=== PATIENT | female | born 1970 | race Caucasian/White ===

== ENCOUNTER 2024-04-28 20:49 | Inpatient (IN) | payer OTHER, SELFPAY ==
[2024-04-28 15:03] VITALS: BP 155/106
[2024-04-28 15:24] LABS: % Basophils 0.2 % (0-2); % Immature Granulocytes 0.5 % (0-0.5); % Lymphocytes 10.9 % (20.5-51.1); % Monocytes 3.4 % (1.7-9.3); Absolute Basophils 0.1 10^3/uL (0-0.2); Absolute Immature Granulocytes 0.1 10^3/uL (0-0.05); Absolute Lymphocytes 2.3 10^3/uL (1.2-3.4); Absolute Monocytes 0.7 10^3/uL (0.1-0.6); Hematocrit 47.4 % (37.0-47.0); Mean Corp Hgb Conc. 35.9 g/dL (33.0-37.0); Mean Corpuscular Hgb 31.7 pg (27.0-31.0); Mean Corpuscular Volume 88.3 fL (81.0-99.0); Mean Platelet Volume 10.1 fL (7.4-10.4); Nucleated Red Blood Cells % 0 %; Platelet Count 356 10^3/uL (130-400); Red Blood Cell Count 5.37 10^6/uL (4.20-5.40); White Blood Cell Count 21.2 10^3/uL (4.8-10.8)
[2024-04-28 15:31] LABS: HCG, Serum Qualitative Screen Negative
[2024-04-28 15:35] LABS: ALT (SGPT) 14 U/L (0-35); AST (SGOT) 21 U/L (14-36); Albumin 5.2 g/dl (3.5-5.0); Alkaline Phosphatase 55 U/L (38-126); Blood Urea Nitrogen 17 mg/dl (7-17); Calcium 9.8 mg/dl (8.4-10.2); Carbon Dioxide 25 mmol/L (22-30); Chloride 101 mmol/L (98-107); Glucose 128 mg/dl (70-99); Sodium 141 mmol/L (135-145); Total Bilirubin 0.9 mg/dl (0.2-1.3); Total Protein 7.8 g/dl (6.3-8.2); eGFR > 60.00
--- NOTE | 2024-04-28 17:04 | ED.GENMED ---
History of Present Illness
General
Chief Complaint: Abdominal Pain
Time Seen by Provider: 04/28/24 16:36
History of Present Illness
History of Present Illness:
54-year-old female presents to the emergency department for evaluation of left lower quadrant pain and rectal bleeding. Pain began yesterday, felt she might be constipated so she used an enema which did result in a strong bowel movement however she
had persistent rectal bleeding for several hours after that. Rectal bleeding is now stopped however she is having moderate left lower quadrant pain. No history of similar pain. Denies any history of abdominal surgeries. No fever, chills, sweats,
nausea, or vomiting.
Past History
Past History
ED Past Medical History: GERD, HTN and Psychiatric
ED Past Surgical History: Appendectomy, Gynecological and Orthopedic
Social History
Tobacco: Smoker
Review of Systems
Review of Systems
Allergies reviewed?: Yes
All Other Systems: ROS reviewed and negative except as documented in HPI and ROS
Phy Exam
Physical Exam
Physical Exam:
GEN: Well appearing, NAD, WDWN
HEENT: Oral mucosa moist, no scleral icterus
Cardiac: Regular rate
Lung: No respiratory distress, no tachypnea
Abdomen: Soft, moderate left lower quadrant tenderness, no rigidity or peritoneal signs
MSK: No gross deformity or injuries
Skin: Good color, no pallor or jaundice, no rashes
Neuro: AO x3, moves all extremities freely
Psych: Calm, cooperative
Course
Orders/Labs/Results
Orders:
Orders
04/28/24 15:07
Test Result ONCE
04/28/24 15:12
Type+Screen Urgent
Complete Blood Count/With Diff Urgent
Comprehensive Metabolic Panel Urgent
HCG, Serum Qualitative Screen Urgent
04/28/24 17:03
CT Abd/Pel (IV only)-DH only Urgent
Comment:
Reason For Exam: LLQ pain
04/28/24 17:21
ABO2 Urgent
BBK Wristband Number:
Associate notified that ABO2 has been ordered: [id number]
Date: 04/28/24
Time: 15:38
Assistant Passenger Locomotive Engineer ID: [id number]
04/28/24 19:35
Lactic Acid Urgent
0.9% Sodium Chloride 1000 ml [Nss] 1,000 ml IV BOLUS
Ketorolac [Toradol] 15 mg IV NOW STA
Piperacillin/Tazo 3.375 Gram [Zosyn] 3.375 gram in 50 ml IV NOW
Abnormal Lab Results
04/28/24
15:12
WBC 21.2 H 10^3/uL
(4.8-10.8)
Hgb 17.0 H g/dL
(12.0-16.0)
Hct 47.4 H %
(37.0-47.0)
MCH 31.7 H pg
(27.0-31.0)
Abs Immat Gran (auto) 0.1 H 10^3/uL
(0-0.05)
Absolute Neuts (auto) 18.0 H 10^3/uL
(1.4-6.5)
Absolute Monos (auto) 0.7 H 10^3/uL
(0.1-0.6)
Neutrophils % 85.0 H %
(42.2-75.2)
Lymphocytes % 10.9 L %
(20.5-51.1)
Glucose 128 H mg/dl
(70-99)
Albumin 5.2 H g/dl
(3.5-5.0)
04/28/24 15:12
04/28/24 15:12
Vital Signs
Initial and Last Documented VS:
Initial Vital Signs
Temp Pulse Resp BP Pulse Ox
97.8 F 95 18 155/106 96
04/28/24 15:03 04/28/24 15:03 04/28/24 15:03 04/28/24 15:03 04/28/24 15:03
Last Documented Vital Signs
Temp Pulse Resp BP Pulse Ox
97.8 F 87 26 177/94 96
04/28/24 15:03 04/28/24 19:30 04/28/24 19:30 04/28/24 17:15 04/28/24 15:03
MDM/Problems Addressed
MDM/Problems Addressed:
Given the severe leukocytosis coupled with unclear cause of colitis will start empiric IV antibiotics and admit to the hospitalist service for further management
*Critical Care Note
Total Time (30-74mins, 75-104mins- exclusive of procedures): Not Applicable
ED Attending Note
-
Portions of this chart may have been created with voice recognition software.� Occasional wrong word or��sound alike� substitutions may have occurred due to the inherent limitations of voice recognition software.
Discharge Plan
Departure
Patient Disposition: Admit
Date of Disposition: 04/28/24
Time of Disposition: 19:36
Presentation/result/management discussed w/ accepting MD/DO: Hospitalist
Discharge Problem:
Colitis
Prescriptions:
No Action
buspirone 10 MG tablet
10 mg PO BID
gabapentin 100 MG capsule
100 mg PO TID
rosuvastatin 10 MG tablet
10 mg PO QPM
lamotrigine 150 mg tablet
150 mg PO DAILY
alprazolam 1 mg tablet
1 mg PO TIDPRN PRN (Reason: anxiety)
Patient Comments:
04/28/2024: last filled 04/15/24, 60 tabs for 30 days from [facility]
cyanocobalamin (vitamin B-12) 1,000 mcg Tablet
1,000 mcg PO .3X WEEKLY
zolpidem 10 mg tablet
10 mg PO HS
Patient Comments:
04/28/2024: last filled 04/17/24, 30 tabs for 30 days from [facility]
turmeric 400 mg Capsule
400 mg PO BID
Referrals:
Higinio Eisenberg MD [Family Provider] -
Interventions
Interventions:
*Risk Screen - Suicide Last Done: 04/28/24 15:03
*General Assessment Last Done: 04/28/24 15:03
*Neglect/Abuse Screening Last Done: 04/28/24 15:03
GO-Qqlelf-Lvyatddorw Assessment Last Done: 04/28/24 17:52
Discharge Date and Time
Print Language: ARMENIAN
[2024-04-28 17:15] VITALS: BP 177/94
--- NOTE | 2024-04-28 19:58 | HPS.HSE ---
Family Physician
-
Family Physician: Higinio Eisenberg
Chief Complaint
-
Left lower quadrant abdominal pain nausea vomiting and loose bloody stools
History of Present Illness
This 54-year-old female with past medical history of hypertension, hyperlipidemia, anxiety and depression who presents to the emergency department with 1 day history of abdominal pain followed by episodes of constipation and then ultimately bloody
diarrhea.
Patient reports she was in usual state of health up until 1 year ago when she developed crampy abdominal pain in the left lower quadrant. She reported that she felt she was constipated and to enema. Status post enema she had a regular bowel
movement. She took one dose of aspirin 81mg and ibuprofen 200mg for the pain/migraine headache. Otherwise denies NSAIDs. Later on in the day she developed bloody incontinent bowel movement. She reported bright red blood per rectum. She reported
episodes of nonbloody and nonbilious emesis overnight. She reports no fevers, she does report chills which she is baseline. She had the bloody bowel movements without tenderness most until arrival in the ED. In the ED she has not had any bowel
movement. She is intolerant of p.o. due to the abdominal pain.
Patient had colonoscopy 1 year ago which showed diverticulosis and hemorrhoids without any other significant abnormalities. She denied any recent surgeries. She has no prior intra-abdominal surgeries. She denies any recent travel. She does have
contact with individuals with cold and flulike symptoms at place of work.
In the ED she was afebrile, she was hypertensive to 170/90 nontachycardic. White count was elevated at 21,000 hemoglobin 17 and platelet count of 356. Chemistries were completely within normal limits. She had a CT of the abdomen pelvis which
showed left-sided colitis.
Medical History
Past Medical History
Past Medical History: Reports HTN, Hypercholesterolemia and Psychiatric (Anxiety/depression)
Past Surgical History: Reports Appendectomy and Other (parathyroidectomy)
Social History
Tobacco: Smoker (1ppd)
Alcohol: None
Drug: None
Personal:
Living: With Family
Employment: Employed
Family History
Family History: Not pertinent
Allergies / Home Medications
Allergies reflects when Allergies were last updated in [employer].
Home Medications with original date entered in [employer]
Allergy/Medication List:
Allergies
Allergy/AdvReac Type Severity Reaction Status Date / Time
No Known Allergies Allergy Verified 02/02/23 11:09
Home Medications
buspirone 10 mg tablet 10 mg PO BID 12/19/21
gabapentin 100 mg capsule 100 mg PO TID 12/19/21
rosuvastatin 10 mg tablet 10 mg PO QPM 12/19/21
alprazolam 1 mg tablet 1 mg PO TIDPRN PRN anxiety 04/28/24
cyanocobalamin (vitamin B-12) 1,000 mcg tablet 1,000 mcg PO .3X WEEKLY 04/28/24
lamotrigine 150 mg tablet 150 mg PO DAILY 04/28/24
turmeric 400 mg capsule 400 mg PO BID 04/28/24
zolpidem 10 mg tablet 10 mg PO HS 04/28/24
Review of Systems
-
Constitutional: Reports Chills
EENT: Reports No Symptoms
Respiratory: Reports No Symptoms
Cardiac: Reports No Symptoms
Abdomen/GI: Reports Abdominal Pain and Bloody Stools
: Reports No Symptoms
Musculoskeletal: Reports No Symptoms
Skin: Reports No Symptoms
Neurological: Reports No Symptoms
Endocrine: Reports No Symptoms
Hematologic/Lymphatic: Reports No Symptoms
Psych: Reports No Symptoms
Physical Exam
Vital Signs
Vital Signs
Temp Pulse Resp BP Pulse Ox
97.8 F 87 26 177/94 96
04/28/24 15:03 04/28/24 19:30 04/28/24 19:30 04/28/24 17:15 04/28/24 15:03
Physical Exam
General: Well Developed, Well Nourished and Comfortable
HEENT: NormoCephalic, Anicteric, Moist mucous membranes and Atraumatic
Respiratory: Clear
Cardiac: S1/S2 and Regular Rhythm
Breast: Deferred by me
GI: Soft, Non Tender, Non Distended, No Hepatosplenomegaly and Other (decreased bowel sounds)
Rectal: Deferred by Provider
Genito-urinary: Deferred by me
Musculoskeletal: No Clubbing, No Cyanosis and No Edema
Skin: Warm
Neuro: AO x 3
Psych: Confused
Laboratory Results
-
04/28/24 15:12
04/28/24 15:12
Laboratory Results
Total Bilirubin 0.9 mg/dl (0.2-1.3) 04/28/24 15:12
AST 21 U/L (14-36) 04/28/24 15:12
ALT 14 U/L (0-35) 04/28/24 15:12
Alkaline Phosphatase 55 U/L (38-126) 04/28/24 15:12
Data Reviewed
-
CT Scan: Report Reviewed by me
Lab Data: Labs Reviewed by me
Old Records: Reviewed
Impression/Plan
-
IMPRESSION:
54 y.o with left lower quadrant abdominal pain, vomiting, blood bowel movement and significant leukocytosis. H/O diverticuli on colonoscopy 1 year ago. Consistent with acute diverticulitis. However CT scan only shows left sided colitis without
fluid collection/abscess or perforation. Not currenlty bleeding, hemodynamically stable and hemoglobin is elevated either hemoconcentrated or secondary to tobacco smoking.
PLAN:
1. Acute colitis - Non-complicated colitis, suspect possible diverticulitis. Patient with minimal risk factors for resistant infection.
- admit to med/surg obs
- clear liquid diet and advance as tolerated
- IV abx for now with ceftriaxone/metronidazole
- pain control and antiemetics
- iv fluids
2. Rectal bleeding - Episode stopped, possible hemorrhoidal vs diverticulitis
- h/h elevated, trend for now, no indication for transfusion at this time
3. MED/REC
- continue gabapentin, statin and buspiron per home regimen with prn zolpidem and alprazolam
DVT PPX - SCDs
Code Status - Full
[2024-04-28] MEDS: NSS 1000 IV (20:03)
[2024-04-28] MEDS: TORADOL 15 MG IV (20:03)
[2024-04-28] MEDS: ZOSYN 50 IV (20:04)
[2024-04-28 20:07] VITALS: BP 176/96
[2024-04-28 21:41] VITALS: BP 158/90
[2024-04-28 21:44] VITALS: BMI 29.3
--- NOTE | 2024-04-28 21:45 | PTCARENOTE ---
Patient received from the ED via stretcher. Pt ambulated into the room. AAOx3, VSS. Patient has no complaints of pain at this time. Educated on plan of care and medications. Oriented to the room, call gutiérrez is within reach.
[2024-04-28] MEDS: NEURONTIN 100 MG PO (22:09)
[2024-04-28] MEDS: AMBIEN 10 MG PO (22:09)
[2024-04-28] MEDS: D5/0.9% SODIUM CHLORIDE 1000 IV (22:11)
[2024-04-28] MEDS: TENORMIN 50 MG PO (22:14)
[2024-04-28] MEDS: FLAGYL 500 MG 100 IV (22:14)
[2024-04-28] MEDS: TYLENOL 1000 MG PO (23:22)
[2024-04-28 23:40] VITALS: BP 150/86
[2024-04-29] MEDS: ROCEPHIN 2000 MG IV (00:58)
[2024-04-29] MEDS: STERILE WATER FOR INJECTION 20 ML IV (00:58)
[2024-04-29] MEDS: FLAGYL 500 MG 100 IV ×3 (05:04→22:26)
[2024-04-29] MEDS: TORADOL 10 MG IV ×2 (06:15→15:55)
[2024-04-29 06:45] LABS: Hematocrit 39.5 % (37.0-47.0); Hemoglobin 14.4 g/dL (12.0-16.0); Mean Corp Hgb Conc. 36.5 g/dL (33.0-37.0); Mean Corpuscular Hgb 31.4 pg (27.0-31.0); Mean Corpuscular Volume 86.1 fL (81.0-99.0); Mean Platelet Volume 10.2 fL (7.4-10.4); Platelet Count 257 10^3/uL (130-400); Red Blood Cell Count 4.59 10^6/uL (4.20-5.40); Red Cell Dist. Width 11.9 % (11.5-14.5); White Blood Cell Count 12.3 10^3/uL (4.8-10.8)
[2024-04-29 06:59] LABS: Blood Urea Nitrogen 10 mg/dl (7-17); Carbon Dioxide 19 mmol/L (22-30); Chloride 110 mmol/L (98-107); Estimated Creatinine Clearance > 125 ml/min; Glucose 136 mg/dl (70-99); Potassium 3.7 mmol/L (3.5-5.1); Sodium 142 mmol/L (135-145); eGFR > 60.00
[2024-04-29 07:37] VITALS: BP 141/84
[2024-04-29] MEDS: LAMICTAL 150 MG PO (08:17)
[2024-04-29] MEDS: NEURONTIN 100 MG PO ×3 (08:18→22:24)
[2024-04-29] MEDS: BUSPAR 10 MG PO ×2 (08:18→19:36)
--- NOTE | 2024-04-29 08:59 | W.PN.HOSP.TC ---
Today's Communication/Plan
-
Antibiotics. IV fluids. Pain control. Bowel regimen.
Assessment / Plan
Assessment / Plan
Physical exam:
General: Acutely ill
HEENT: Normocephalic, Atraumatic and Moist Mucous Membranes
Respiratory: Clear to Auscultation; Negative Wheezes, Rales or Rhonchi
Cardiac: Regular Rhythm and S1/S2
GI: Soft, tender and Nondistended
Musculoskeletal: No Clubbing, No Cyanosis and No Edema
Neuro: Awake, Alert and Oriented
Psych: Calm
A/P:
Acute colitis, infectious versus ischemic:
Check stool studies and C. difficile
Seen CT scan of the abdomen and pelvis
Clear liquid diet and will advance as tolerated
Continue IV fluids
Continue IV antibiotics, Rocephin and Flagyl-plan for 5 days course
GI consult appreciated
If symptoms continue or worsen GI would consider flex sig
Constipation:
Bowel regimen
Hypertension:
Continue atenolol
Monitor blood pressure adjust medications accordingly
Hyperlipidemia:
Continue rosuvastatin 10 mg p.o. nightly
Anxiety:
Continue usual home medications
DVT prophylaxis:
SCDs
CODE STATUS:
Full code
Anticipated Discharge: Within 24 hours
Subjective/Interval History
-
Date of Service: April 29, 2024
Patient improving, less abdominal pain nausea or vomiting. Afebrile
Objective Data
-
Labs:
Laboratory Results
04/29/24
06:27
WBC 12.3 H
Hgb 14.4
Hct 39.5
Plt Count 257 D
Sodium 142
Potassium 3.7
Chloride 110 H
Carbon Dioxide 19 L
BUN 10
Creatinine 0.5 L
Glucose 136 H
Calcium 9.0
Vital Signs:
Vital Signs
Temp Pulse Resp BP Pulse Ox
97.7 F 66 20 141/84 97
04/29/24 07:37 04/29/24 07:37 04/29/24 07:37 04/29/24 07:37 04/29/24 07:37
I&O
04/28/24 04/29/24 04/30/24
06:59 06:59 06:59
Intake Total 1355 / 1355
Balance 1355 / 1355
--- NOTE | 2024-04-29 09:08 | CON.GI ---
Consultation
-
Date/Time Consultation Requested: 04/29/2024
Date/Time Consultation Performed: 04/29/2024
Requesting Provider:
Performing Provider: Dr. Mckinney
Reason for Consultation: Rectal bleeding and abdominal pain
Medical History
Chief Complaint / HPI
Chief Complaint: Left lower quadrant pain and rectal bleeding
History of Present Illness:
54-year-old female with history of hypertension, GERD presenting with complaints of lower abdominal cramping pain starting while she was at work, she reports having constipation few days prior to that, she went home and took enema and had a
bowel movement which was brown but then the next morning started having multiple episodes of bright bloody bowel movements which brought her to the emergency room. Last episode of bloody bowel movement was yesterday. Nothing since. She has
history of intermittent abdominal pains for several years -avoids greasy foods as it triggers abdominal pain and also has baseline constipation, her normal pattern for bowel movements is 1 every 2 to 3 days, previously used to take Senokot but does
not take it anymore. No pushing or straining, usually reports good evacuation. No previous history of rectal bleeding. No loss of appetite, unintentional weight loss or NSAID use. No sick contacts, eating out or recent antibiotic use.
On admission, leukocytosis noted with white count of 21.2 but today came down to 12.3. Hemoglobin is normal. CMP normal range. CT scan of abdomen and pelvis with IV contrast only showing left-sided colitis, rule out infectious versus
inflammatory. No further bowel movement since admission. Currently on clear liquid diet
She had open access colonoscopy with Dr. Pagan for screening in October 2022, diverticulosis and internal hemorrhoids noted.
Past Medical History
Past Medical History: GERD and HTN
Past Surgical History: None
Social History
Tobacco: Smoker
Alcohol: Occasional
Family History
Family History: Reviewed & Not Pertinent
Allergies / Home Medications
Allergy/AdvReac Type Severity Reaction Status Date / Time
No Known Allergies Allergy Verified 02/02/23 11:09
�Medication �Instructions �Recorded
buspirone 10 mg tablet 10 mg PO BID Depression 12/19/21
gabapentin 100 mg capsule 100 mg PO TID Mental Health/Anxiety 12/19/21
rosuvastatin 10 mg tablet 10 mg PO QPM High Cholesterol 12/19/21
alprazolam 1 mg tablet 1 mg PO TIDPRN PRN anxiety 04/28/24
cyanocobalamin (vitamin B-12) 1,000 mcg PO .3X WEEKLY Supplement 04/28/24
1,000 mcg tablet
lamotrigine 150 mg tablet 150 mg PO DAILY Mental 04/28/24
Health/Anxiety
turmeric 400 mg capsule 400 mg PO BID Supplement 04/28/24
zolpidem 10 mg tablet 10 mg PO HS Sleep 04/28/24
Review of Systems
-
All other systems: A 12 pt ROS was Negative except as stated above in HPI
Vital Signs
Temp Pulse Resp BP Pulse Ox
97.7 F 66 20 141/84 97
04/29/24 07:37 04/29/24 07:37 04/29/24 07:37 04/29/24 07:37 04/29/24 07:37
Physical Exam
Exam
HEENT: Normocephalic
Respiratory: Clear
Cardiac: S1/S2 and Regular Rhythm
GI: Soft, Non Tender, Non Distended and Normal Bowel Sounds
Neuro: Awake and AO x 3
Results
WBC 12.3 10^3/uL (4.8-10.8) H 04/29/24 06:27
Hgb 14.4 g/dL (12.0-16.0) 04/29/24 06:27
Hct 39.5 % (37.0-47.0) 04/29/24 06:27
MCV 86.1 fL (81.0-99.0) 04/29/24 06:27
Plt Count 257 10^3/uL (130-400) D 04/29/24 06:27
Absolute Neuts (auto) 18.0 10^3/uL (1.4-6.5) H 04/28/24 15:12
Sodium 142 mmol/L (135-145) 04/29/24 06:27
Potassium 3.7 mmol/L (3.5-5.1) 04/29/24 06:
Chloride 110 mmol/L (98-107) H 04/29/24 06:
Carbon Dioxide 19 mmol/L (22-30) L 04/29/24:
BUN 10 mg/dl (7-17) 04/29/24:
Creatinine 0.5 mg/dL (0.6-1.0) L 04/29/24:
Calcium 9.0 mg/dl (8.4-10.2) 04/29/24 06:
Total Bilirubin 0.9 mg/dl (0.2-1.3) 04/28/24 15:12
AST 21 U/L (14-36) 04/28/24 15:12
ALT 14 U/L (0-35) 04/28/24 15:12
Alkaline Phosphatase 55 U/L (38-126) 04/28/24 15:12
Diagnostic Image Results:
Prior GI Procedures:
EGD:
Colonoscopy:
Assessment / Plan
-
54-year-old female with history of hypertension, GERD presenting with lower abdominal pain and rectal bleeding. She reports history of constipation. CT scan of the abdomen past with with IV contrast showing left-sided colitis. Colonoscopy in 2023
with diverticulosis and hemorrhoids. No sick contacts or recent antibiotics.
-Rule out infectious colitis versus ischemic versus less likely inflammatory given acute onset of symptoms.
Will check stool for cultures, C. difficile, WBC, Cryptosporidium and Giardia.
Okay for clear liquid diet, will advance as tolerated.
Leukocytosis noted on admission, currently on ceftriaxone and Flagyl. Complete the course for 5 to 7 days.
If symptoms continue, could consider flexible sigmoidoscopy.
-History of chronic constipation, may need a bowel regimen like MiraLAX 17 gm daily.
Will follow.
-
-
Thank you for consultation and allowing me to participate in the patient's care. Please call the automobile sales consultant GI physician during the after hours with any questions or concerns.
[2024-04-29] MEDS: D5/0.9% SODIUM CHLORIDE 1000 IV (12:37)
[2024-04-29 15:20] VITALS: BP 191/95
--- NOTE | 2024-04-29 16:44 | CM ---
Patient seen at bedside
IA completed
Lives at home with her
PLOF: Independent, drives
No DME
Denies prior VN and SNF
no needs currently, CM to follow
PCP: Higinio Eisenberg
Pharmacy: [facility]
PLAN: home, currently no needs
[2024-04-29 16:45] VITALS: BP 156/85
[2024-04-29] MEDS: CRESTOR 10 MG PO (17:40)
[2024-04-29] MEDS: TENORMIN 50 MG PO (22:24)
[2024-04-29] MEDS: TYLENOL 650 MG PO (22:27)
[2024-04-29] MEDS: AMBIEN 10 MG PO (22:44)
[2024-04-30 00:20] VITALS: BP 145/81
[2024-04-30] MEDS: STERILE WATER FOR INJECTION 20 ML IV (01:20)
[2024-04-30] MEDS: ROCEPHIN 2000 MG IV (01:20)
[2024-04-30] MEDS: D5/0.9% SODIUM CHLORIDE 1000 IV (03:46)
[2024-04-30] MEDS: FLAGYL 500 MG 100 IV (05:03)
[2024-04-30 07:30] VITALS: BP 147/80
[2024-04-30] MEDS: NEURONTIN 100 MG PO (07:47)
[2024-04-30] MEDS: LAMICTAL 150 MG PO (07:47)
[2024-04-30] MEDS: BUSPAR 10 MG PO (07:47)
[2024-04-30 08:02] LABS: % Basophils 0.5 % (0-2); % Eosinophils 0.9 % (0-6); % Immature Granulocytes 0.3 % (0-0.5); % Lymphocytes 23.6 % (20.5-51.1); % Monocytes 4.5 % (1.7-9.3); % Neutrophils 70.2 % (42.2-75.2); Absolute Basophils 0.1 10^3/uL (0-0.2); Absolute Eosinophils 0.1 10^3/uL (0-0.7); Absolute Lymphocytes 2.2 10^3/uL (1.2-3.4); Absolute Monocytes 0.4 10^3/uL (0.1-0.6); Absolute Neutrophils 6.6 10^3/uL (1.4-6.5); Hematocrit 39.1 % (37.0-47.0); Hemoglobin 13.9 g/dL (12.0-16.0); Mean Corp Hgb Conc. 35.5 g/dL (33.0-37.0); Mean Corpuscular Hgb 31.4 pg (27.0-31.0); Mean Corpuscular Volume 88.3 fL (81.0-99.0); Mean Platelet Volume 10.6 fL (7.4-10.4); Nucleated Red Blood Cells % 0 %; Platelet Count 262 10^3/uL (130-400); Red Blood Cell Count 4.43 10^6/uL (4.20-5.40); Red Cell Dist. Width 11.9 % (11.5-14.5); White Blood Cell Count 9.4 10^3/uL (4.8-10.8)
[2024-04-30 08:12] LABS: Blood Urea Nitrogen 5 mg/dl (7-17); Calcium 8.6 mg/dl (8.4-10.2); Carbon Dioxide 24 mmol/L (22-30); Chloride 107 mmol/L (98-107); Estimated Creatinine Clearance > 125 ml/min; Glucose 114 mg/dl (70-99); Potassium 3.5 mmol/L (3.5-5.1); Sodium 144 mmol/L (135-145); eGFR > 60.00
--- NOTE | 2024-04-30 09:23 | W.PN.HOSP.TC ---
Today's Communication/Plan
-
Possible signing AMA today.
Assessment / Plan
Assessment / Plan
Physical exam:
General: Mild distress due to abdominal discomfort.
HEENT: Normocephalic, Atraumatic and Moist Mucous Membranes
Respiratory: Clear to Auscultation; Negative Wheezes, Rales or Rhonchi
Cardiac: Regular Rhythm and S1/S2
GI: Soft, tender and Nondistended
Musculoskeletal: No Clubbing, No Cyanosis and No Edema
Neuro: Awake, Alert and Oriented
Psych: Calm
A/P:
Acute colitis, infectious versus ischemic versus stercoral colitis/constipation:
Check stool studies and C. difficile
Seen CT scan of the abdomen and pelvis
Clear liquid diet and will advance as tolerated
Will stop IV fluids today
Will stop antibiotics today
GI consult appreciated
If symptoms continue or worsen GI would consider flex sig
Patient is thinking about signing AGAINST MEDICAL ADVICE today. Discussed risk and benefits and advised not to but patient wants to see her outpatient GI and feels that she can go home today.
Constipation:
Bowel regimen
Hypertension:
Continue atenolol
Monitor blood pressure adjust medications accordingly
Hyperlipidemia:
Continue rosuvastatin 10 mg p.o. nightly
Anxiety:
Continue usual home medications
DVT prophylaxis:
SCDs
CODE STATUS:
Full code
Anticipated Discharge: Today
Subjective/Interval History
-
Date of Service: April 30, 2024
Patient overall feeling better but anytime she eats she still has some abdominal discomfort. She is not having any rectal bleed. She is not having any bowel movement either for few days. Afebrile
Objective Data
-
Labs:
Laboratory Results
04/30/24
06:06
WBC 9.4
Hgb 13.9
Hct 39.1
Plt Count 262
Sodium 144
Potassium 3.5
Chloride 107
Carbon Dioxide 24
BUN 5 L
Creatinine 0.5 L
Glucose 114 H
Calcium 8.6
Vital Signs:
Vital Signs
Temp Pulse Resp BP Pulse Ox
97.8 F 63 16 147/80 97
04/30/24 07:30 04/30/24 07:30 04/30/24 07:30 04/30/24 07:30 04/30/24 07:30
I&O
04/29/24 04/30/24 05/01/24
06:59 06:59 06:59
Intake Total 1355 / 1355 2670 / 2670
Balance 1355 / 1355 2670 / 2670
--- NOTE | 2024-04-30 12:23 | W.DCSUMMARY ---
Discharge Summary
Discharge Data
Date of Admission: 04/28/24
Date of Discharge: 04/30/24
-
Pending Results: No
Hospital Course
Patient 54 years old female history of hypertension, GERD, presented to the hospital with lower abdominal cramp and also some constipation. Patient also reported some rectal bleed. She was admitted and started on antibiotics IV fluid and GI
consulted. CT scan shows some possible colitis. GI saw the patient and kept on clear liquid diet and on same regimen but also advised if she would not get any better to consider flexible sigmoidoscopy as inpatient. Patient did not want to wait
for GI further recommendations and she wants to see her outpatient GI as outpatient and wants to sign AGAINST MEDICAL ADVICE. She did not want to wait for any further instructions and recommendations and she is signing AMA now. No other events
were noticed.
Discharge duration: 35 minutes
Discharge Plan
-
Patient Disposition: Against Medical Advice
Condition: Fair
Referrals:
Higinio Eisenberg MD [Family Provider] -
Prescriptions:
No Action
buspirone 10 MG tablet
10 mg PO BID
gabapentin 100 MG capsule
100 mg PO TID
rosuvastatin 10 MG tablet
10 mg PO QPM
lamotrigine 150 mg tablet
150 mg PO DAILY
alprazolam 1 mg tablet
1 mg PO TIDPRN PRN (Reason: anxiety)
Patient Comments:
04/28/2024: last filled 04/15/24, 60 tabs for 30 days from [facility]
cyanocobalamin (vitamin B-12) 1,000 mcg Tablet
1,000 mcg PO .3X WEEKLY
zolpidem 10 mg tablet
10 mg PO HS
Patient Comments:
04/28/2024: last filled 04/17/24, 30 tabs for 30 days from [facility]
turmeric 400 mg Capsule
400 mg PO BID
Discharge Date and Time
Discharge Date/Time: 04/30/24 12:27
Print Language: SAMMARINESE
== END 2024-04-30 12:27 | disposition left against medical advice (07) | DRG 387 ==
LOC: 4 EAST ACU 20:49
PROVIDERS: Physician Assistant; Student in an Organized Health Care Education/Training Program; ADMITTING PHYSICIAN Internal Medicine; ATTENDING PHYSICIAN Hospitalist; CONSULT PHYSICIAN Internal Medicine Gastroenterology; EMERGENCY PHYSICIAN Student in an Organized Health Care Education/Training Program; FAMILY PHYSICIAN Family Medicine
DX: K51.511 Left sided colitis with rectal bleeding (principal); F17.210 Nicotine dependence, cigarettes, uncomplicated; K59.00 Constipation, unspecified; I10 Essential (primary) hypertension; E78.00 Pure hypercholesterolemia, unspecified; F41.9 Anxiety disorder, unspecified
CPT/HCPCS: 74177; 80048; 80053; 83605; 84703; 85025; 85027; 86850; 86900; 86901; 96361; 96365; 96375; 99285; Q9967